=== PATIENT | male | born 1970 | race Caucasian/White ===

== ENCOUNTER 2018-06-13 16:04 | Emergency (ER) | payer MEDICAID ==
--- NOTE | 2018-06-13 16:08 | EDPHY ---
H & P Source: Patient Exam Limitations: No limitations - Medical/Surgical History Hx Asthma: No Hx Chronic Respiratory Disease: No Hx Diabetes: No Hx Cardiac Disease: No Hx Renal Disease: No Hx Cirrhosis: No Hx Alcoholism: No Hx HIV/AIDS: No Hx Splenectomy or Spleen Trauma: No Other PMH: hepc + - Social History Smoking Status: Never smoked Time Seen by Provider: 06/13/18 16:05 HPI/ROS: HPI: This is a 48-year-old male who presents with Chief Complaint: Getting dizzy after eat a peanut butter and jelly sandwich Location: head Quality: Dizziness Duration: Prior to arrival Signs and Symptoms: no shortness of breath at rest, no shortness of breath on exertion, no cough, no chest pain, no palpitations, no lower extremity edema, no wheezing, no orthopnea, no paroxysmal nocturnal dyspnea, no fever, no injury/ trauma, no hemoptysis, no carpal pedal spasms, + nausea Timing: Acute, constant Severity: [id number] Context: Patient [facility] by [facility] from a prison with complaints of sudden onset of dizziness while sitting in eating a peanut butter and jelly sandwich. He reports that he has smoked cigarettes which he rolls his own and marijuana today. Denies any alcohol use or any other drug use. He reports that he has a history of hypertension. EMS reports a blood pressure 124/68. Denies LOC, fever, nausea, vomiting, seizure activity. Has not ate or drank anything today. No weakness. EMS reports that patient was ambulatory within the prison. Patient reports that he had admissions at [facility] and [place] but is unable to tell me why he was admitted. Patient is in extremely poor historian and very elusive. Denies any stroke history. Patient complains of nausea is not worsened with head movements.. Modifying Factors: None Comment: ROS: A comprehensive 10 system review of systems is otherwise negative aside from elements mentioned in the history of present illness. MEDICAL/SURGICAL/SOCIAL HISTORY: Medical history: Hypertension. Surgical history: Denies Social history: Transient. Marijuana and tobacco user. Unemployed. CONSTITUTIONAL: Untidy, malodorous, intoxicated, middle-aged white male, awake and alert, no obvious distress HEENT: Atraumatic and normocephalic, PERRL, EOMI. Nares patent; no rhinorrhea; no nasal mucosal edema. Tympanic membranes clear. Oropharynx clear, poor dentition with multiple dental cavities, tobacco flakes noted on tongue, no exudate and moist pink mucosa. Airway patent. No lymphadenopathy. No meningismus. Cardiovascular: Normal S1/S2, regular rate, regular rhythm, without murmur rub or gallop. PULMONARY/CHEST: Symmetrical and nontender. Clear to auscultation bilaterally. Good air movement. No accessory muscle usage. ABDOMEN: Soft, nondistended, nontender, no rebound, no guarding, no peritoneal signs, no masses or organomegaly. No CVAT. EXTREMITIES: 2/2 pulses, strength 5/5, no deformities, no clubbing, no cyanosis or edema. NEUROLOGICAL: no focal neuro deficits. GCS 15. Speech somewhat slurred. cranial nerves 2-12 grossly intact. Normal cerebellar testing. Somewhat difficult exam to assess for dizziness with Harold-Hallpike maneuver. SKIN: Warm and dry, no erythema. no rash. Good capillary refill. (Sandrine Sherwood) Constitutional: Initial Vital Signs Temperature (C) 36.5 C 06/13/18 16:00 Heart Rate 81 06/13/18 16:00 Respiratory Rate 15 06/13/18 16:00 Blood Pressure 128/94 H 06/13/18 16:00 O2 Sat (%) 98 06/13/18 16:00 O2 Delivery Mode Room Air Allergies/Adverse Reactions: acetaminophen Allergy (Verified 08/06/17 06:56) Penicillins Allergy (Verified 06/13/18 16:11) Home Medications: Medication Instructions Recorded Meclizine HCl [Meclizine HCl 12.5 12.5 mg PO Q6 PRN #10 tab 06/13/18 mg (*)] Ziprasidone HCl 06/13/18 Medical Decision Making - Diagnostics EKG Interpretation: 12 lead EKG: Indication: Dizziness Rhythm: Normal sinus rhythm [place]: Normal Intervals: Normal QRS: Normal ST segments: Normal INTERPRETATION: Normal EKG The 12 lead EKG was interpreted by myself and with attending. (Sandrine Sherwood) Imaging Results: Imaging Impressions Head CT 06/13/18 16:20 Impression: Motion limited study. Age advanced generalized cerebral volume loss without acute intracranial process. Findings and recommendations discussed with Sandrine Sherwood at 1645 hour, 2017. ED Course/Re-evaluation: Patient placed on pvc monitor upon arrival vital signs stable. IV access and laboratory studies obtain. Given 1 L normal saline and IV promethazine 12.5 mg EKG shows normal sinus rhythm with rate of 76 beats per minute. No acute ischemic changes. No arrhythmias. No heart block. Head CT scan ordered due to altered mental status and poor historian. 1700: Called by radiologist who advises head CT scan shows no acute intracranial process. Labs reviewed. No signs of leukocytosis/anemia/platelet dysfunction/QUE/ electrolyte imbalance/ACS. 1719: Urine sample obtained. Urine drug screen negative. Ethanol level negative Dizziness may be related to vertigo. Very difficult to perform Ronaldo-Hallpike maneuver outpatient. No nystagmus noted. P.o. Meclizine 25 mg given. 1740: Notified by nurse that patient has doxycycline in his pocket for a sinus infection. This could be contributing into his dizziness Case management consult. [facility] will be obtained within the next week. Patient has a prescription for doxycycline and will give meclizine as needed for dizziness. 1756: Patient now requesting be discharged as he wants to get into the prison before 7:00 p.m. manager respiratory gave the patient a cab voucher. Denies any dizziness at discharge. Ambulatory without any deficits. This patient was seen under the supervision of my secondary supervising physician. I evaluated care for this patient independently. Discussed this patient with Dr. Nelson. (Sandrine Sherwood) Differential Diagnosis: Dizziness including but not limited to peripheral and central causes of vertigo , orthostatic causes including dehydration, and blood loss. (Sandrine Shrewood) - Data Points Laboratory Results: Laboratory Results 06/13/18 16:08 06/13/18 16:08 06/13/18 06/13/18 06/13/18 17:00 16:20 16:08 WBC RBC Hgb Hct MCV MCH MCHC RDW Plt Count MPV Neut % (Auto) Lymph % (Auto) [place] % (Auto) Eos % (Auto) Baso % (Auto) Nucleat RBC Rel Count Absolute Neuts (auto) Absolute Lymphs (auto) Absolute Monos (auto) Absolute Eos (auto) Absolute Basos (auto) Absolute Nucleated RBC Immature Gran % Immature Gran # Sodium 139 mEq/L mEq/L (135-145) Potassium 4.3 mEq/L mEq/L (3.3-5.0) Chloride 106 mEq/L mEq/L (97-110) Carbon Dioxide 25 mEq/l mEq/l (22-31) Anion Gap 8 mEq/L mEq/L (6-14) BUN 20 mg/dL mg/dL (7-23) Creatinine 0.7 mg/dL mg/dL (0.7-1.3) Estimated GFR > 60 Glucose 94 mg/dL mg/dL (70-100) Calcium 9.0 mg/dL mg/dL (8.5-10.4) POC Troponin I 0.01 ng/mL ng/mL (0.00-0.08) Urine Opiates Screen NEGATIVE (NEGATIVE) Urine Barbiturates NEGATIVE (NEGATIVE) Ur Phencyclidine Scrn NEGATIVE (NEGATIVE) Ur Amphetamine Screen NEGATIVE (NEGATIVE) U Benzodiazepines Scrn NEGATIVE (NEGATIVE) Urine Cocaine Screen NEGATIVE (NEGATIVE) U Marijuana (THC) Screen NEGATIVE (NEGATIVE) Ethyl Alcohol < 10 mg/dL mg/dL (0-10) 06/13/18 16:08 WBC 4.81 10^3/uL 10^3/uL (3.80-9.50) RBC 4.81 10^6/uL 10^6/uL (4.40-6.38) Hgb 12.9 g/dL L g/dL (13.7-17.5) Hct 38.8 % L % (40.0-51.0) MCV 80.7 fL L fL (81.5-99.8) MCH 26.8 pg L pg (27.9-34.1) MCHC 33.2 g/dL g/dL (32.4-36.7) RDW 14.5 % % (11.5-15.2) Plt Count 219 10^3/uL 10^3/uL (150-400) MPV 10.1 fL fL (8.7-11.7) Neut % (Auto) 42.4 % % (39.3-74.2) Lymph % (Auto) 37.0 % % (15.0-45.0) [place] % (Auto) 12.9 % % (4.5-13.0) Eos % (Auto) 5.8 % % (0.6-7.6) Baso % (Auto) 1.5 % % (0.3-1.7) Nucleat RBC Rel Count 0.0 % % (0.0-0.2) Absolute Neuts (auto) 2.04 10^3/uL 10^3/uL (1.70-6.50) Absolute Lymphs (auto) 1.78 10^3/uL 10^3/uL (1.00-3.00) Absolute Monos (auto) 0.62 10^3/uL 10^3/uL (0.30-0.80) Absolute Eos (auto) 0.28 10^3/uL 10^3/uL (0.03-0.40) Absolute Basos (auto) 0.07 10^3/uL 10^3/uL (0.02-0.10) Absolute Nucleated RBC 0.00 10^3/uL 10^3/uL (0-0.01) Immature Gran % 0.4 % % (0.0-1.1) Immature Gran # 0.02 10^3/uL 10^3/uL (0.00-0.10) Sodium Potassium Chloride Carbon Dioxide Anion Gap BUN Creatinine Estimated GFR Glucose Calcium POC Troponin I Urine Opiates Screen Urine Barbiturates Ur Phencyclidine Scrn Ur Amphetamine Screen U Benzodiazepines Scrn Urine Cocaine Screen U Marijuana (THC) Screen Ethyl Alcohol Medications Given: Discontinued Medications Sodium Chloride (Ns) 1,000 mls @ 0 mls/hr IV EDNOW ONE; Wide Open PRN Reason: Protocol Stop: 06/13/18 16:10 Last Admin: 06/13/18 16:17 Dose: 1,000 mls Promethazine HCl (Phenergan) 12.5 mg IVP ONCE ONE Stop: 06/13/18 16:20 Last Admin: 06/13/18 16:22 Dose: 12.5 mg Point of Care Test Results: Chemistry 06/13/18 16:20 POC Troponin I 0.01 ng/mL ng/mL (0.00-0.08) Departure - Departure Disposition: Home, Routine, Self-Care Clinical Impression: Dizziness Sinusitis Qualifiers: Sinusitis location: unspecified location Chronicity: unspecified Qualified Code (s): J32.9 - Chronic sinusitis, unspecified Condition: Good Instructions: Sinusitis (ED), Rhinosinusitis (ED), Dizziness (ED) Additional Instructions: Please follow up with [facility] drop in hours. Continue to take doxycycline as prescribed. Take meclizine as needed every 6 hr for dizziness. Please refrain from smoking marijuana. Referrals: [facility],. [Clinic] - As per Instructions Prescriptions: Meclizine HCl [Meclizine HCl 12.5 mg (*)] 12.5 mg PO Q6 PRN #10 tab PRN Reason: Dizziness
[2018-06-13] MEDS ORDERED: NS 1,000 ML IV ONE (16:09)
[2018-06-13 16:17] LABS: PLATELET COUNT 219 10^3/uL (150-400)
[2018-06-13] MEDS ORDERED: PROMETHAZINE HCL 25 MG/ML INJ IVP ONE (16:19)
--- NOTE | 2018-06-13 16:35 | CPEKG ---
Test Reason : OPEN Blood Pressure : / mmHG Vent. Rate : 076 BPM Atrial Rate : 077 BPM P-R Int : 164 ms QRS Dur : 102 ms QT Int : 413 ms P-R-T Axes : 055 042 058 degrees QTc Int : 465 ms Sinus rhythm Confirmed by Brennan Nelson ([id number]) on 06/13/2018 4:35:25 PM Referred By: Confirmed By:Brennan Nelson
[2018-06-13 17:38] VITALS: BP 150/86
[2018-06-13] MEDS ORDERED: MECLIZINE HCL 25 MG TAB PO ONE (17:40)
--- NOTE | 2018-06-13 19:23 | ASMTCMCOM ---
CM Note CM Note Notes: Of note, pt was incorrectly registered: pt's name is Fidel Mcintyre (not Bath) Per chart review of pt's chart under his correct name Fidel Mcintyre, it appears pt was last seen in the ED in January 2018. Pt seems to have been in the [place] area since at least 2008. Requested to assist pt w/returning to the [facility]. This CM called [facility] and confirmed pt is able to stay there. This CM provided pt a cab voucher due to it being 1800 and [facility] requires clients to arrive by 1900. The cab still had not arrived by 1835 so this CM called [employer] multiple times but it automatically went to an answering machine. Thinking that cabs are delayed in response due to it being Halloween, this CM called [facility] and confirmed that they will still let pt into the [facility] if he arrives after 1900. Pt provided [facility] Drop-In Hours information. Pt states he is familiar w/PC and plans on following up. CM available for further assistance if needed. Date Signed: 06/13/2018 07:23 PM Electronically Signed By:Torri Desir RN
== END 2018-06-13 18:13 | disposition home or self-care (01) ==
LOC: EDUNIT#
DX: R42 Dizziness and giddiness (principal); J32.9 Chronic sinusitis, unspecified; E86.9 Volume depletion, unspecified; I10 Essential (primary) hypertension; B19.20 Unspecified viral hepatitis C without hepatic coma; Z88.0 Allergy status to penicillin; Z59.0 Homelessness
CPT/HCPCS: 80305; 84484-ER; G0480; J2550